=== PATIENT | male | born 1940 | race Caucasian/White ===

== ENCOUNTER 2021-08-19 10:13 | Observation (INO) ==
[2021-08-19] MEDS ORDERED: PROMETHAZINE 12.5 MG/50.5 ML BAG IV STA (11:08)
[2021-08-19] MEDS ORDERED: MoRPHine SULFATE 2 MG/ML CARP IV STA (11:08)
--- NOTE | 2021-08-19 11:15 | Emergency Department Note ---
History of Present Illness General Chief complaint: Flank Pain Stated complaint: KIDNEY STONE Time Seen by Provider: 08/19/21 10:49 History of Present Illness Maximum Pain Intensity: 9 This 80-year-old male presents today with his , for evaluation of left-sided flank pain that has been present for several days. Patient developed flank pain earlier in the week on 08/14/2021. He was initially seen at [facility] and had a noncontrast CT obtained of his abdomen and pelvis. This showed 2 obstructing renal stones with perinephric stranding and hydroureter. The ED did contact Dr. Lee at that time, who recommended follow-up in the office. Patient was seen by Dr. Lee on 08/17, this past Friday in the office. Patient was deemed to require cystoscopy, left ureteronephroscopy, retrograde pyelogram, laser destruction or stone extraction, and possible ureter stent placement. His states this is scheduled for September 10. Patient does have a history of severe aortic stenosis as well as coronary artery disease and valvular insufficiency and chronic kidney disease stage III. He is awaiting porcine valve replacement. He states that he requires cardiac clearance before surgery. Patient developed increasing pain last evening, and became excruciating around 10 PM. He states he did not sleep at all. He came to the ED for evaluation. Patient is tearful during today's exam, stating he is in excruciating pain. Pain starts in the left flank and radiates anteriorly to the left groin. He denies any vomiting or diarrhea. He does have nausea secondary to pain. No fevers or chills. He denies any manny blood in his urine. He feels he cannot wait until September 10 to have his stones addressed. His is frustrated, and is unsure what else to do. Pain is currently 9. Home Medications Medication Instructions Recorded Confirmed Type amlodipine 10 mg-benazepril 40 mg 1 cap PO DAILY 08/31/19 08/19/21 History capsule aspirin 81 mg tablet,delayed 81 mg PO DAILY 08/31/19 08/19/21 History release clopidogrel 75 mg tablet 75 mg PO DAILY 08/31/19 08/19/21 History cyanocobalamin (vitamin B-12) 1,000 mcg PO DAILY 08/31/19 08/19/21 History 1,000 mcg tablet ergocalciferol (vitamin D2) 50 mcg See Rx Instructions PO .COMPLEX 08/31/19 08/19/21 History (2,000 unit) tablet ezetimibe 10 mg tablet (Zetia) 10 mg PO DAILY 08/31/19 08/19/21 History ferrous sulfate 325 mg (65 mg See Rx Instructions PO .COMPLEX 08/31/19 08/19/21 History iron) tablet multivitamin (Daily Multi-Vitamin) 1 tab PO DAILY 08/31/19 08/19/21 History nitroglycerin 0.4 mg sublingual 0.4 mg SL Q5M PRN 08/31/19 08/19/21 History tablet (Nitrostat) pantoprazole 20 mg tablet,delayed 20 mg PO DAILY 08/31/19 08/19/21 History release rosuvastatin 40 mg tablet 40 mg PO DAILY 08/31/19 08/19/21 History turmeric root extract 500 mg See Rx Instructions PO .COMPLEX 08/31/19 08/19/21 History capsule acetaminophen 500 mg tablet 500 mg PO BID PRN tab 09/06/19 08/19/21 History (Tylenol Extra Strength) ascorbate calcium (vitamin C) 500 500 mg PO DAILY 09/06/19 08/19/21 History mg tablet benazepril 20 mg tablet (Lotensin) 20 mg PO DAILY 08/24/20 08/19/21 History metoprolol succinate 25 mg 25 mg PO DAILY 08/24/20 08/19/21 History tablet,extended release 24 hr (Toprol XL) vit C 250 mg-vit E 90 mg-zinc 40 1 cap PO DAILY 08/24/20 08/19/21 History mg-copper 1 sr-anuvns-ohpjuk capsule (PreserVision AREDS-2) tamsulosin 0.4 mg capsule 0.4 mg PO DAILY 08/19/21 08/19/21 History Allergies Allergy/AdvReac Type Severity Reaction Status Date / Time Penicillins Allergy Unverified 08/17/21 10:28 Past Med/Surg History Medical History Arthritis Basal cell carcinoma (BCC) of eye CAD (coronary artery disease) Cataracts, both eyes Chronic kidney disease, stage III (moderate) Fluid level behind tympanic membrane of both ears GERD (gastroesophageal reflux disease) Hyperlipemia Hypertension Kidney stones Schatzki's ring Type II diabetes mellitus Vitamin D deficiency Surgical History H/O carpal tunnel repair right H/O heart artery stent H/O tooth extraction History of esophagogastroduodenoscopy (EGD) History of knee replacement History of placement of ear tubes History of tonsillectomy and adenoidectomy History of total right knee replacement Hx of cardiac cath Hx of colonoscopy Family History Denies family history of Kidney disease Social History Smoking Status: Never smoker Hx Alcohol Use: No Preferred Language: Slovenian marital status: Current Living Situation: Spouse current occupational status: retired 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[place]) Feels Safe at Home: Yes Review of Systems A total of 10 systems reviewed and were otherwise negative Physical Exam Vital Signs Vital Signs - 24 hr 08/19/21 10:49 08/19/21 11:21 08/19/21 13:00 Temperature 37 C Temperature Source Temporal Artery Scan Pulse Rate 75 Pulse Rate [Apical] 71 73 Pulse Rhythm [Apical] Regular Pulse Strength [Apical] Normal Respiratory Rate 20 24 18 Respiratory Effort / Characteristics Non-Labored Non-Labored Spontaneous Respiratory Depth Normal Normal Respiratory Pattern Regular Blood Pressure 133/78 Blood Pressure [Left Arm] 165/82 H 174/84 H Blood Pressure Mean 96 Blood Pressure Mean [Left Arm] 109 114 Blood Pressure Position [Left Arm] Semi-fowlers Pulse Oximetry 100 100 96 Oxygen Delivery Method Room Air Room Air Room Air Sepsis Recent Fever Within 48 Hours No Sepsis New/Unexplained Change in Mental Status No Sepsis Action Taken by Nursing No Action Required General: Well-developed, well-nourished, elderly white male, in no acute distress. Obvious discomfort. Occasionally crying. Laying on the bed. Alert and oriented. Skin: Warm and dry with fair turgor. No rashes or lesions. No ecchymosis or erythema. The patient is not diaphoretic. No abrasions. HEENT: Normocephalic atraumatic. Eyes PERRLA, EOMI. No conjunctiva or scleral injection. Ears TMs intact bilaterally with good light reflexes. No erythema or bulging. No hemotympanum. Canals are patent. Nares patent bilaterally without turbinate enlargement. No significant drainage. No epistaxis. Oropharynx without erythema or exudate. Uvula midline, oral mucosa moist. No lesions present. Lymphatics are palpated without anterior or posterior chain enlargement or tenderness. Heart: RRR. 3/6 systolic ejection murmur noted. No gallops or rubs. Lungs: Lungs clear to auscultation bilaterally. No crackles rhonchi or wheezing. Good air movement. Abdomen: Abdomen was inspected, auscultated, and palpated. Obese. Bowel sounds present x 4. Soft, left lower quadrant and suprapubic discomfort to palpation. No hepato-splenomegaly. No masses noted. Hernia is noted. No rebound, negative Navarro sign. No pain over McBurney's point. There is left-sided CVA tenderness. Musculoskeletal: Gross motor function of the upper and lower extremities is intact and unremarkable. Course Administered Medications Amlodipine Besylate (Amlodipine Besylate 5 Mg Tab) 10 mg PO QAM [facility] Stop: 09/18/21 18:44 Last Admin: 08/19/21 20:04 Dose: 10 mg Documented by: [id number] Ceftriaxone Sodium 2,000 mg/ (Dextrose) 70 mls @ 100 mls/hr IV Q24H [facility]; Protocol Stop: 08/21/21 18:59 Last Infusion: 08/19/21 21:01 Dose: 0 mls/hr Documented by: [id number] Admin: 08/19/21 20:08 Dose: 100 mls/hr Documented by: [id number] Insulin Aspart (Insulin Aspart 100 Units/Ml 3 Ml Pen) 0 units SC Q6 [facility] Stop: 09/18/21 19:29 Last Admin: 08/19/21 20:16 Dose: Not Given Documented by: [id number] Cosigned by: [id number] Metoprolol Succinate (Metoprolol Succ 25mg Ext Rel Tab) 25 mg PO DAILY [facility] Stop: 09/18/21 18:44 Last Admin: 08/19/21 20:06 Dose: 25 mg Documented by: [id number] Pantoprazole Sodium (Pantoprazole 40 Mg Tab) 40 mg PO DAILY [facility] Stop: 09/18/21 18:44 Last Admin: 08/19/21 20:05 Dose: 40 mg Documented by: [id number] Rosuvastatin Calcium (Rosuvastatin Calcium 20 Mg Tab) 40 mg PO DAILY [facility] Stop: 09/18/21 18:44 Last Admin: 08/19/21 20:07 Dose: 40 mg Documented by: [id number] Tamsulosin HCl (Tamsulosin Hcl 0.4 Mg Cap) 0.4 mg PO DAILY [facility] Stop: 09/18/21 18:44 Last Admin: 08/19/21 20:06 Dose: 0.4 mg Documented by: [id number] Discontinued Medications Promethazine HCl (Phenergan) 12.5 mg in 50.5 mls @ 202 mls/hr IV NOW STA Stop: 08/19/21 11:22 Last Infusion: 08/19/21 11:41 Dose: 0 mls/hr Documented by: [id number] Admin: 08/19/21 11:26 Dose: 202 mls/hr Documented by: [id number] Morphine Sulfate (Morphine Sulfate 2 Mg/Ml Carp) 2 mg IV NOW STA Stop: 08/19/21 11:09 Last Admin: 08/19/21 11:25 Dose: 2 mg Documented by: [id number] Medical Decision Making Differential Diagnosis Renal colic, obstructing kidney stone, pyelonephritis, muscle strain, lumbar radiculopathy, diverticulitis Medical Records Attestation: I reviewed the patient's medical records. Home Medications Current Medication List: was personally reviewed by me Laboratory Data CBC, Jen panel, UA, and COVID-19 test were ordered. CBC shows an H&H of 11.5 and 35.2. White count of 11.1. Electrolytes are unremarkable. BUN of 36 with creatinine of 2.58. Covid is negative. Patient was unable to provide a urine sample while in the ED. Result diagrams: 08/19/21 11:16 08/19/21 11:16 Lab Results 08/19/21 08/19/21 08/19/21 Range/Units 11:16 11:16 13:00 WBC 11.14 H (4.8-10.8) K/uL RBC 4.03 L (4.7-6.1) M/uL Hgb 11.5 L (14.0-18.0) g/dL Hct 35.2 L (42-52) % MCV 87.3 (80-100) fL MCH 28.5 (25-34) pg MCHC 32.7 (32-36) g/dL RDW Std Deviation 46.7 H (36.4-46.3) fL RDW Coeff of Nury 14.6 H (11.5-14.5) % Plt Count 226 (130-400) K/uL MPV 10.3 (7.4-10.4) fL Immature Gran % (Auto) 0.3 % Neut % (Auto) 83.9 % Lymph % (Auto) 4.8 % Licking % (Auto) 10.5 % Eos % (Auto) 0.3 % Baso % (Auto) 0.2 % Neut # (Auto) 9.36 H (1.4-6.5) K/uL Lymph # (Auto) 0.53 L (1.2-3.4) K/uL [place] # (Auto) 1.17 H (0.11-0.59) K/uL Eos # (Auto) 0.03 (0-0.5) K/uL Baso # (Auto) 0.02 (0-0.2) K/uL Immature Gran # (Auto) 0.03 H (0.00-0.02) K/uL Sodium 138 (136-145) mmol/L Potassium 4.5 (3.5-5.1) mmol/L Chloride 106 (98-107) mmol/L Carbon Dioxide 24 (21-32) mmol/L Anion Gap 8.0 (3-11) BUN 36 H (7-18) mg/dl Creatinine 2.58 H (0.6-1.4) mg/dl Est Cr Clr Drug Dosing 25.2 ml/min Est GFR ( Amer) 26.4 ml/min Est GFR (Non-Af Amer) 22.8 ml/min BUN/Creatinine Ratio 14.0 (10-20) Glucose 151 H (70-99) mg/dl Calcium 9.8 (8.5-10.1) mg/dl Total Bilirubin 0.5 (0.2-1) mg/dl Direct Bilirubin 0.2 (0-0.2) mg/dl AST 15 (15-37) U/L ALT 18 (12-78) U/L Alkaline Phosphatase 46 (45-117) U/L Troponin I < 0.015 (0-0.045) ng/ml Total Protein 8.1 (6.4-8.2) gm/dl Albumin 3.4 (3.4-5.0) gm/dl Globulin 4.7 H (2.5-4.0) gm/dl Albumin/Globulin Ratio 0.7 L (0.9-2) COVID-19 Eval Order Covid19 at [facility] SARS-CoV-2 (PCR) (Negative) 08/19/21 Range/Units 13:00 WBC (4.8-10.8) K/uL RBC (4.7-6.1) M/uL Hgb (14.0-18.0) g/dL Hct (42-52) % MCV (80-100) fL MCH (25-34) pg MCHC (32-36) g/dL RDW Std Deviation (36.4-46.3) fL RDW Coeff of Nury (11.5-14.5) % Plt Count (130-400) K/uL MPV (7.4-10.4) fL Immature Gran % (Auto) % Neut % (Auto) % Lymph % (Auto) % L[place] % (Auto) % Eos % (Auto) % Baso % (Auto) % Neut # (Auto) (1.4-6.5) K/uL Lymph # (Auto) (1.2-3.4) K/uL Licking # (Auto) (0.11-0.59) K/uL Eos # (Auto) (0-0.5) K/uL Baso # (Auto) (0-0.2) K/uL Immature Gran # (Auto) (0.00-0.02) K/uL Sodium (136-145) mmol/L Potassium (3.5-5.1) mmol/L Chloride (98-107) mmol/L Carbon Dioxide (21-32) mmol/L Anion Gap (3-11) BUN (7-18) mg/dl Creatinine (0.6-1.4) mg/dl Est Cr Clr Drug Dosing ml/min Est GFR ( Amer) ml/min Est GFR (Non-Af Amer) ml/min BUN/Creatinine Ratio (10-20) Glucose (70-99) mg/dl Calcium (8.5-10.1) mg/dl Total Bilirubin (0.2-1) mg/dl Direct Bilirubin (0-0.2) mg/dl AST (15-37) U/L ALT (12-78) U/L Alkaline Phosphatase (45-117) U/L Troponin I (0-0.045) ng/ml Total Protein (6.4-8.2) gm/dl Albumin (3.4-5.0) gm/dl Globulin (2.5-4.0) gm/dl Albumin/Globulin Ratio (0.9-2) COVID-19 Eval Order SARS-CoV-2 (PCR) NEGATIVE (Negative) Blood Pressure Blood Pressure Findings: Elevated blood pressure Blood Pressure Disposition: elevated BP felt to be situational MDM Narrative Patient was evaluated in room C3. Conservative care measures were discussed. IV was established. Labs were obtained. He was given Phenergan 25 mg IV and morphine 2 mg IV. Pain became tolerable. I did speak with Dr. Lee after the patient's lab work was resulted. He recommended admission to the hospital for pain control with urology consult. Patient will require cardiac clearance to proceed with his planned cystoscopy. He states his coding consultant is in the [place] area. He will need to see someone locally. Patient has already had 2 ED visits and a specialist visit within the last 5 days. Symptoms have not improved. I did speak with the [facility] hospitalist service regarding admission. Please see that dictation for final management. Patient was seen in conjunction with Dr. Mak, who also evaluated the patient and concurred with today's diagnosis and treatment plan. Impression & Plan Ureteral calculi, Flank Pain Admission to the hospitalist service with urology and cardiology consults. Discharge Plan Visit Data Chief Complaint: Flank Pain Stated Complaint: KIDNEY STONE ED Provider: Zac Mak ED Midlevel Provider: Randy Browne Discharge Problem: Ureteral calculi, Flank Pain
[2021-08-19 11:34] LABS: Basophils # (auto) 0.02 K/uL (0-0.2); Basophils % (auto) 0.2 %; Eosinophils # (auto) 0.03 K/uL (0-0.5); Eosinophils % (auto) 0.3 %; Hematocrit (blood only) 35.2 % (42-52); Hemoglobin 11.5 g/dL (14.0-18.0); Immature Granulocytes # (auto) 0.03 K/uL (0.00-0.02); Immature Granulocytes % (auto) 0.3 %; Lymphocytes # (auto) 0.53 K/uL (1.2-3.4); Lymphocytes % (auto) 4.8 %; Mean Corpuscular Hemoglobin 28.5 pg (25-34); Mean Corpuscular Hgb Conc 32.7 g/dL (32-36); Mean Corpuscular Volume 87.3 fL (80-100); Mean Platelet Volume 10.3 fL (7.4-10.4); Monocytes # (auto) 1.17 K/uL (0.11-0.59); Monocytes % (auto) 10.5 %; Neutrophils # (auto) 9.36 K/uL (1.4-6.5); Neutrophils % (auto) 83.9 %; Platelet Count 226 K/uL (130-400); RDW Coefficient of Variation 14.6 % (11.5-14.5); RDW Standard Deviation 46.7 fL (36.4-46.3); Red Blood Count 4.03 M/uL (4.7-6.1); White Blood Count 11.14 K/uL (4.8-10.8)
[2021-08-19 11:53] LABS: Albumin Level 3.4 gm/dl (3.4-5.0); Bilirubin Direct 0.2 mg/dl (0-0.2); Blood Urea Nitrogen 36 mg/dl (7-18); Calcium 9.8 mg/dl (8.5-10.1); Carbon Dioxide 24 mmol/L (21-32); Chloride 106 mmol/L (98-107); Creatinine Clr Calc Pharmacy 25.2 ml/min; Est GFR (African American) 26.4 ml/min; Est GFR (Non-African American) 22.8 ml/min; Glucose 151 mg/dl (70-99); Potassium 4.5 mmol/L (3.5-5.1); Sodium 138 mmol/L (136-145)
[2021-08-19 12:01] LABS: Alanine Aminotransferase 18 U/L (12-78); Albumin Globulin Ratio 0.7 (0.9-2); Alkaline Phosphatase 46 U/L (45-117); Aspartate Aminotransferase 15 U/L (15-37); Bilirubin,Total 0.5 mg/dl (0.2-1); Globulin 4.7 gm/dl (2.5-4.0); Total Protein 8.1 gm/dl (6.4-8.2)
--- NOTE | 2021-08-19 13:12 | History & Physical Report ---
Date of Service August 19, 2021 Assessment & Plan (1) Ureteral calculi: Plan: Hernan is a 80-year-old male with a history of severe aortic stenosis, coronary artery disease with past PCI and 100% occluded RCA, hypertension, type 2 diabetes, and CKD 3 who presents with intractable pain due to nephrolithiasis. Patient is admitted for obstructing nephrolithiasis with intractable pain. Of note he has severe coronary artery disease and progressive symptomatic severe aortic stenosis. He was pending outpatient cardiac optimization and potential TAVR evaluation prior to nephrolithiasis management, unfortunately he has presented with ABBY and intractable pain prior. Patient is not able to be transferred at this time, and in the setting of an acute ABBY with hydronephrosis involve optimization may not be able to be done until initial ABBY and hydronephrosis is managed. We will admit to our service at this time, urology consulted. Perioperative risk discussed with patient and family at bedside, who are understanding of this Obstructing nephrolithiasis with moderate/proximal hydro and perinephric stranding Leukocytosis to 11.14 Hemoglobin 11.5 Creatinine baseline approximately 2.02.3, 2.[address] on admission Covid pending CT 08/14/2021: 2 obstructing calculi in the proximal left ureter resulting in moderate/proximal hydronephrosis and perinephric stranding. Nonobstructing calculus in the lower right kidney, uncomplicated cholelithiasis, and extensive sigmoid diverticulosis without complication are noted. Large right inguinal hernia extending into the region of the upper scrotum incompletely assessed. Urology consulted Rocephin 2 g IV Zofran every 4 hours for nausea Hydromorphone 0.5 mg every 4 hours as needed scaled analgesia Empiric coverage with Rocephin patient previously tolerated Keflex with no reaction. (2) Aortic stenosis: Plan: -Severe aortic stenosis Symptomatic, severe by report TTE pending (3) Carpal tunnel syndrome, left: (4) Chronic kidney disease, stage III (moderate): Plan: CKD 3, with acute ABBY Baseline creatinine 22 0.3 Creatinine 2.58 on admission Gentle fluids, avoid nephrotoxins (5) Hypertension: Plan: Hypertension Continue amlodipine 10 mg daily Benzapril 40 mg held for ABBY (6) CAD (coronary artery disease): Plan: Coronary artery disease Continue rosuvastatin 40 mg daily Continue metoprolol 25 mg p.o. daily Continue Zetia 10 mg daily Continue aspirin/Plavix (7) Type II diabetes mellitus: Plan: Type 2 diabetes mellitus Hold home antiglycemic Glucose 151 on admission SSI goal 1001 40 History of Present Illness Chief Complaint: Back Pain Primary Care Provider: Celina Liz MD Hernan Tanner is a 80-year-old male with a past medical history of CAD with PCI and stent, type 2 diabetes, Schatzki's ring, hypertension, hyperlipidemia, CKD 3, cataracts, BCC of the eye, and arthritis who was seen in [facility] and was found to have 2X renal stones and was sent outpatient follow-up with Dr. Lee. He was scheduled for lithotripsy in September pending cardiac clearance, however has presented for intractable pain 08/19. Case was discussed with Dr. Lee by ER, recommended for admission with cardiology consult for optimization and nephrolithiasis treatment. [facility] 2x renal stones Sees [place] operator [place]. Hx of valvular problems and murmur, hx of severe . CT Scan LEFT. Dr. Hurtado saw outpt Friday. Having pain, was scheduled for lithotripsy. Was pending cardiac clearance and scheduled for Sep 10 Pain all day until 10pm, acutely worsened and intractable Per Dr. Hurtado: Admit, accelerate cardiac workup, tx in house Ginny tto ed at 830pm felt OK. Woke up with severe sharp pain in her L back. Took two tylenol with no improvement. No pain with urination No hematuria Pain is in his L back. Mild LUQ pain. 5/10 pain now, 10/10 pain now Normally sees Cardiology Dr. Mcgovern with [facility] in [place], [place]. Hx of Aortic Stenosis, scheduled for f/u on Aug 27 for evaluation. +Sob with exertion, progressive for several months No chest pain, no chest pressure right now +chest pain and cold sweat last night with pain episode PCI & carotid stent. PCI in Oct 2003. R carotid stend placed 2013. No medications yet this morning. Heart cath in 2015, RCA 100% occluded with collaterals. No IMDUR or Coreg since 2016. Medical History: Reviewed Medications: Reviewed Surgical History: Reviewed Allergies: Reviewed Social History: no tobacco, etoh, MM use. Code Status: Full Code. Allergies Allergy/AdvReac Type Severity Reaction Status Date / Time Penicillins Allergy Unverified 08/17/21 10:28 Home Medications Medication Instructions Recorded Confirmed Type amlodipine 10 mg-benazepril 40 mg 1 cap PO DAILY 08/31/19 08/19/21 History capsule aspirin 81 mg tablet,delayed 81 mg PO DAILY 08/31/19 08/19/21 History release clopidogrel 75 mg tablet 75 mg PO DAILY 08/31/19 08/19/21 History cyanocobalamin (vitamin B-12) 1,000 mcg PO DAILY 08/31/19 08/19/21 History 1,000 mcg tablet ergocalciferol (vitamin D2) 50 mcg See Rx Instructions PO .COMPLEX 08/31/19 08/19/21 History (2,000 unit) tablet ezetimibe 10 mg tablet (Zetia) 10 mg PO DAILY 08/31/19 08/19/21 History ferrous sulfate 325 mg (65 mg See Rx Instructions PO .COMPLEX 08/31/19 08/19/21 History iron) tablet multivitamin (Daily Multi-Vitamin) 1 tab PO DAILY 08/31/19 08/19/21 History nitroglycerin 0.4 mg sublingual 0.4 mg SL Q5M PRN 08/31/19 08/19/21 History tablet (Nitrostat) pantoprazole 20 mg tablet,delayed 20 mg PO DAILY 08/31/19 08/19/21 History release rosuvastatin 40 mg tablet 40 mg PO DAILY 08/31/19 08/19/21 History turmeric root extract 500 mg See Rx Instructions PO .COMPLEX 08/31/19 08/19/21 History capsule acetaminophen 500 mg tablet 500 mg PO BID PRN tab 09/06/19 08/19/21 History (Tylenol Extra Strength) ascorbate calcium (vitamin C) 500 500 mg PO DAILY 09/06/19 08/19/21 History mg tablet benazepril 20 mg tablet (Lotensin) 20 mg PO DAILY 08/24/20 08/19/21 History metoprolol succinate 25 mg 25 mg PO DAILY 08/24/20 08/19/21 History tablet,extended release 24 hr (Toprol XL) vit C 250 mg-vit E 90 mg-zinc 40 1 cap PO DAILY 08/24/20 08/19/21 History mg-copper 1 [id number] capsule (PreserVision AREDS-2) tamsulosin 0.4 mg capsule 0.4 mg PO DAILY 08/19/21 08/19/21 History Past Med/Surg History Medical History (Updated 08/19/21 @ 17:14 by Thom Kimble MD) Arthritis Basal cell carcinoma (BCC) of eye CAD (coronary artery disease) Cataracts, both eyes Chronic kidney disease, stage III (moderate) Fluid level behind tympanic membrane of both ears GERD (gastroesophageal reflux disease) Hyperlipemia Hypertension Kidney stones Schatzki's ring Type II diabetes mellitus Vitamin D deficiency Surgical History H/O carpal tunnel repair right H/O heart artery stent H/O tooth extraction History of esophagogastroduodenoscopy (EGD) History of knee replacement History of placement of ear tubes History of tonsillectomy and adenoidectomy History of total right knee replacement Hx of cardiac cath Hx of colonoscopy Family History Denies family history of Kidney disease Social History Smoking Status: Never smoker Hx Alcohol Use: No Preferred Language: Serbian marital status: Current Living Situation: Spouse current occupational status: retired 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 NAD. Cooperative. HEENT: Atraumatic, normocephalic. Vision/hearing grossly intact Pulm: CTAB A&P. -wheezes, -rales, -rhonchi. Symmetrical chest rise. No increase work of breathing. No respiratory distress. Cardiac: 6/6 sytolic murmur. Radial pulses intact and symmetrical. Abdominal: Left CVA tenderness is present, left flank tenderness is present. No rebound. Bowel sounds present. Ext: Distal extremity strength including retaining room cutter strength, ankle dorsiflexion/plantarflexion 5/5. Sensation to soft touch intact in hands and feet. Results & Data Results & Data ([facility]) Vital Signs (Past 12 Hours) Vital Signs Temp Pulse Pulse Resp BP BP Pulse Ox 08/19/21 11: 71 24 165/82 H 100 08/19/21 10:49 37 C 75 20 133/78 100 PG Care Time/CCT Total # of Minutes Spent Total Time Spent with Patient: Total time spent is greater than 50% in coordination of care (as documented) at patient's floor/unit and/or counseling patient: Coding Level of Care Code 78945 Initial Inpt Care Lvl 3 Diagnoses Ureteral calculi N20.1 Carpal tunnel syndrome, left G56.02 Chronic kidney disease, stage III (moderate) N18.3 Hypertension I10 Aortic stenosis I35.0 CAD (coronary artery disease) I25.10 Type II diabetes mellitus E11.9
[2021-08-19 16:01] LABS: Appearance Urine Clear (Clear); Bacteria Urine Automated Negative (Negative); Bilirubin Urine Negative (Negative); Blood Urine Negative (Negative); Color Urine Yellow; Glucose Urine UA Negative (Negative); Ketones Urine Negative (Negative); Leukocyte Esterase Urine Negative (Negative); Nitrite Urine Negative (Negative); Protein Urine 1+ (Negative); RBC Urine Automated 0-4 /hpf (0-4); Specific Gravity Urine 1.019 (1.000-1.030); Urobilinogen Urine Negative (Negative)
[2021-08-19] MEDS ORDERED: HYDROmorphone INJ 0.5 MG/0.5 ML SYR IV PRN (18:45)
[2021-08-19] MEDS ORDERED: ONDANSETRON INJ 2 MG/ML 2 ML VIAL IV PRN (18:45)
[2021-08-19] MEDS ORDERED: PHARMACY GLYCEMIC MGMT CONSULT PRN (18:45)
[2021-08-19] MEDS ORDERED: ACETAMINOPHEN 325 MG TAB PO PRN (18:45)
[2021-08-19] MEDS ORDERED: cefTRIAXone SODIUM 2,000 MG in DEXTROSE 5% 50 ML IV SCH (19:00)
[2021-08-19] MEDS ORDERED: GLUCOSE 10 TABS/TUBE PO PRN (19:15)
[2021-08-19] MEDS ORDERED: GLUCAGON FOR INJ 1 MG VIAL IM PRN (19:15)
[2021-08-19] MEDS ORDERED: DEXTROSE 50% 50 ML SYRINGE IV PRN (19:15)
[2021-08-19] MEDS ORDERED: GLUCOSE 40% GEL 15 GM TUBE PO PRN (19:15)
[2021-08-19] MEDS ORDERED: CARBOHYDRATES FOR HYPOGLYCEMIA PO PRN (19:15)
[2021-08-19] MEDS: amLODIPine BESYLATE 5 MG TAB PO SCH (20:04)
[2021-08-19] MEDS: PANTOprazole 40 MG TAB PO SCH (20:05)
[2021-08-19] MEDS: TAMSULOSIN HCL 0.4 MG CAP PO SCH (20:06)
[2021-08-19] MEDS: METOPROLOL SUCC 25MG EXT REL TAB PO SCH (20:06)
[2021-08-19] MEDS: ROSUVASTATIN CALCIUM 20 MG TAB PO SCH (20:07)
[2021-08-19] MEDS: INSULIN ASPART 100 UNITS/ML 3 ML PEN SC SCH (20:16)
[2021-08-19 20:58] LABS: Troponin I < 0.015 ng/ml (0-0.045)
[2021-08-19] MEDS: HEPARIN SOD 5,000 UNIT/0.5 ML VIAL SQ SCH (21:41)
[2021-08-20] MEDS: INSULIN ASPART 100 UNITS/ML 3 ML PEN SC SCH ×3 (00:09→12:14)
[2021-08-20 04:53] LABS: Basophils # (auto) 0.02 K/uL (0-0.2); Basophils % (auto) 0.2 %; Eosinophils # (auto) 0.06 K/uL (0-0.5); Eosinophils % (auto) 0.7 %; Hematocrit (blood only) 32.4 % (42-52); Hemoglobin 10.4 g/dL (14.0-18.0); Immature Granulocytes # (auto) 0.01 K/uL (0.00-0.02); Immature Granulocytes % (auto) 0.1 %; Lymphocytes # (auto) 0.74 K/uL (1.2-3.4); Lymphocytes % (auto) 9.1 %; Mean Corpuscular Hemoglobin 28.4 pg (25-34); Mean Corpuscular Hgb Conc 32.1 g/dL (32-36); Mean Corpuscular Volume 88.5 fL (80-100); Mean Platelet Volume 10.1 fL (7.4-10.4); Monocytes # (auto) 1.05 K/uL (0.11-0.59); Monocytes % (auto) 12.9 %; Neutrophils # (auto) 6.28 K/uL (1.4-6.5); Platelet Count 200 K/uL (130-400); RDW Coefficient of Variation 14.7 % (11.5-14.5); RDW Standard Deviation 48.1 fL (36.4-46.3); Red Blood Count 3.66 M/uL (4.7-6.1); White Blood Count 8.16 K/uL (4.8-10.8)
[2021-08-20 05:10] LABS: Calcium 9.2 mg/dl (8.5-10.1); Creatinine Clr Calc Pharmacy 23.6 ml/min; Est GFR (African American) 24.4 ml/min; Potassium 4.2 mmol/L (3.5-5.1)
[2021-08-20 06:57] LABS: Estimated Average Glucose 146 mg/dl; Hemoglobin A1C 6.7 % (4.5-5.6)
--- NOTE | 2021-08-20 08:48 | XCELERA ---
[id number]
[2021-08-20] MEDS ORDERED: CLOPIDOGREL BISULFATE 75 MG TAB PO SCH (09:00)
[2021-08-20] MEDS ORDERED: ASPIRIN 81 MG ECTAB PO SCH (09:00)
[2021-08-20] MEDS: amLODIPine BESYLATE 5 MG TAB PO SCH (09:21)
[2021-08-20] MEDS: METOPROLOL SUCC 25MG EXT REL TAB PO SCH (09:22)
[2021-08-20] MEDS: ROSUVASTATIN CALCIUM 20 MG TAB PO SCH (09:23)
[2021-08-20] MEDS: PANTOprazole 40 MG TAB PO SCH (09:23)
[2021-08-20] MEDS: TAMSULOSIN HCL 0.4 MG CAP PO SCH (09:24)
[2021-08-20] MEDS: HEPARIN SOD 5,000 UNIT/0.5 ML VIAL SQ SCH (09:24)
--- NOTE | 2021-08-20 09:31 | Hospitalist Progress Note ---
Date of Service August 20, 2021 Assessment & Plan Admission and Anticipated Discharge Date Admission Date: August 19, 2021 Results & Data Results & Data ([facility]) Vital Signs (Past 12 Hours) Vital Signs Temp Pulse Resp BP Pulse Ox 08/20/21 07:50 77 20 144/70 H 96 08/20/21 03:48 37.1 C 79 20 139/74 94 08/19/21 23:00 82 24 145/62 H 97 08/19/21 22:31 37.1 C 76 18 159/74 H 95 Laboratory Results 08/20/21 08/20/21 08/20/21 Range/Units 06:01 04:32 04:32 WBC (4.8-10.8) K/uL RBC (4.7-6.1) M/uL Hgb (14.0-18.0) g/dL Hct (42-52) % MCV (80-100) fL MCH (25-34) pg MCHC (32-36) g/dL RDW Std Deviation (36.4-46.3) fL RDW Coeff of [place]ury (11.5-14.5) % Plt Count (130-400) K/uL MPV (7.4-10.4) fL Immature Gran % (Auto) % Neut % (Auto) % Lymph % (Auto) % [place] % (Auto) % Eos % (Auto) % Baso % (Auto) % Neut # (Auto) (1.4-6.5) K/uL Lymph # (Auto) (1.2-3.4) K/uL [place] # (Auto) (0.11-0.59) K/uL Eos # (Auto) (0-0.5) K/uL Baso # (Auto) (0-0.2) K/uL Immature Gran # (Auto) (0.00-0.02) K/uL Sodium 138 (136-145) mmol/L Potassium 4.2 (3.5-5.1) mmol/L Chloride 107 (98-107) mmol/L Carbon Dioxide 23 (21-32) mmol/L Anion Gap 8.0 (3-11) BUN 36 H (7-18) mg/dl Creatinine 2.76 H (0.6-1.4) mg/dl Est Cr Clr Drug Dosing 23.6 ml/min Est GFR ( Amer) 24.4 ml/min Est GFR (Non-Af Amer) 21.0 ml/min BUN/Creatinine Ratio 13.0 (10-20) Glucose 125 H (70-99) mg/dl POC Glucose 113 H (70-99) mg/dl Estimat Average Glucose 146 mg/dl Hemoglobin A1c 6.7 H (4.5-5.6) % Calcium 9.2 (8.5-10.1) mg/dl Total Bilirubin (0.2-1) mg/dl Direct Bilirubin (0-0.2) mg/dl AST (15-37) U/L ALT (12-78) U/L Alkaline Phosphatase (45-117) U/L Troponin I (0-0.045) ng/ml Total Protein (6.4-8.2) gm/dl Albumin (3.4-5.0) gm/dl Globulin (2.5-4.0) gm/dl Albumin/Globulin Ratio (0.9-2) Urine Color Urine Appearance (Clear) Urine pH (4.5-7.5) Ur Specific [place] (1.000-1.030) Urine Protein (Negative) Urine Glucose (UA) (Negative) Urine Ketones (Negative) Urine Blood (Negative) Urine Nitrite (Negative) Urine Bilirubin (Negative) Urine Urobilinogen (Negative) Ur Leukocyte Esterase (Negative) Urine WBC (Auto) (0-5) /hpf Urine RBC (Auto) (0-4) /hpf U Hyaline Cast (Auto) (0-5) /lpf U Epithel Cells (Auto) (0-5) /lpf Urine Bacteria (Auto) (Negative) COVID-19 Eval Order SARS-CoV-2 (PCR) (Negative) 08/20/21 08/19/21 08/19/21 Range/Units 04:32 23:56 20:10 WBC 8.16 (4.8-10.8) K/uL RBC 3.66 L (4.7-6.1) M/uL Hgb 10.4 L (14.0-18.0) g/dL Hct 32.4 L (42-52) % MCV 88.5 (80-100) fL MCH 28.4 (25-34) pg MCHC 32.1 (32-36) g/dL RDW Std Deviation 48.1 H (36.4-46.3) fL RDW Coeff of [place]ury 14.7 H (11.5-14.5) % Plt Count 200 (130-400) K/uL MPV 10.1 (7.4-10.4) fL Immature Gran % (Auto) 0.1 % Neut % (Auto) 77.0 % Lymph % (Auto) 9.1 % [place] % (Auto) 12.9 % Eos % (Auto) 0.7 % Baso % (Auto) 0.2 % Neut # (Auto) 6.28 (1.4-6.5) K/uL Lymph # (Auto) 0.74 L (1.2-3.4) K/uL [place] # (Auto) 1.05 H (0.11-0.59) K/uL Eos # (Auto) 0.06 (0-0.5) K/uL Baso # (Auto) 0.02 (0-0.2) K/uL Immature Gran # (Auto) 0.01 (0.00-0.02) K/uL Sodium (136-145) mmol/L Potassium (3.5-5.1) mmol/L Chloride (98-107) mmol/L Carbon Dioxide (21-32) mmol/L Anion Gap (3-11) BUN (7-18) mg/dl Creatinine (0.6-1.4) mg/dl Est Cr Clr Drug Dosing ml/min Est GFR ( Amer) ml/min Est GFR (Non-Af Amer) ml/min BUN/Creatinine Ratio (10-20) Glucose (70-99) mg/dl POC Glucose 113 H 113 H (70-99) mg/dl Estimat Average Glucose mg/dl Hemoglobin A1c (4.5-5.6) % Calcium (8.5-10.1) mg/dl Total Bilirubin (0.2-1) mg/dl Direct Bilirubin (0-0.2) mg/dl AST (15-37) U/L ALT (12-78) U/L Alkaline Phosphatase (45-117) U/L Troponin I (0-0.045) ng/ml Total Protein (6.4-8.2) gm/dl Albumin (3.4-5.0) gm/dl Globulin (2.5-4.0) gm/dl Albumin/Globulin Ratio (0.9-2) Urine Color Urine Appearance (Clear) Urine pH (4.5-7.5) Ur Specific [place] (1.000-1.030) Urine Protein (Negative) Urine Glucose (UA) (Negative) Urine Ketones (Negative) Urine Blood (Negative) Urine Nitrite (Negative) Urine Bilirubin (Negative) Urine Urobilinogen (Negative) Ur Leukocyte Esterase (Negative) Urine WBC (Auto) (0-5) /hpf Urine RBC (Auto) (0-4) /hpf U Hyaline Cast (Auto) (0-5) /lpf U Epithel Cells (Auto) (0-5) /lpf Urine Bacteria (Auto) (Negative) COVID-19 Eval Order SARS-CoV-2 (PCR) (Negative) 08/19/21 08/19/21 08/19/21 Range/Units 15:50 13:00 13:00 WBC (4.8-10.8) K/uL RBC (4.7-6.1) M/uL Hgb (14.0-18.0) g/dL Hct (42-52) % MCV (80-100) fL MCH (25-34) pg MCHC (32-36) g/dL RDW Std Deviation (36.4-46.3) fL RDW Coeff of Nury (11.5-14.5) % Plt Count (130-400) K/uL MPV (7.4-10.4) fL Immature Gran % (Auto) % Neut % (Auto) % Lymph % (Auto) % [place] % (Auto) % Eos % (Auto) % Baso % (Auto) % Neut # (Auto) (1.4-6.5) K/uL Lymph # (Auto) (1.2-3.4) K/uL [place] # (Auto) (0.11-0.59) K/uL Eos # (Auto) (0-0.5) K/uL Baso # (Auto) (0-0.2) K/uL Immature Gran # (Auto) (0.00-0.02) K/uL Sodium (136-145) mmol/L Potassium (3.5-5.1) mmol/L Chloride (98-107) mmol/L Carbon Dioxide (21-32) mmol/L Anion Gap (3-11) BUN (7-18) mg/dl Creatinine (0.6-1.4) mg/dl Est Cr Clr Drug Dosing ml/min Est GFR ( Amer) ml/min Est GFR (Non-Af Amer) ml/min BUN/Creatinine Ratio (10-20) Glucose (70-99) mg/dl POC Glucose (70-99) mg/dl Estimat Average Glucose mg/dl Hemoglobin A1c (4.5-5.6) % Calcium (8.5-10.1) mg/dl Total Bilirubin (0.2-1) mg/dl Direct Bilirubin (0-0.2) mg/dl AST (15-37) U/L ALT (12-78) U/L Alkaline Phosphatase (45-117) U/L Troponin I (0-0.045) ng/ml Total Protein (6.4-8.2) gm/dl Albumin (3.4-5.0) gm/dl Globulin (2.5-4.0) gm/dl Albumin/Globulin Ratio (0.9-2) Urine Color Yellow Urine Appearance Clear (Clear) Urine pH 5.0 (4.5-7.5) Ur Specific [place] 1.019 (1.000-1.030) Urine Protein 1+ H (Negative) Urine Glucose (UA) Negative (Negative) Urine Ketones Negative (Negative) Urine Blood Negative (Negative) Urine Nitrite Negative (Negative) Urine Bilirubin Negative (Negative) Urine Urobilinogen Negative (Negative) Ur Leukocyte Esterase Negative (Negative) Urine WBC (Auto) 1-5 (0-5) /hpf Urine RBC (Auto) 0-4 (0-4) /hpf U Hyaline Cast (Auto) 1-5 (0-5) /lpf U Epithel Cells (Auto) 5-10 H (0-5) /lpf Urine Bacteria (Auto) Negative (Negative) COVID-19 Eval Order Covid19 at [facility] SARS-CoV-2 (PCR) NEGATIVE (Negative) 08/19/21 08/19/21 Range/Units 11:16 11:16 WBC 11.14 H (4.8-10.8) K/uL RBC 4.03 L (4.7-6.1) M/uL Hgb 11.5 L (14.0-18.0) g/dL Hct 35.2 L (42-52) % MCV 87.3 (80-100) fL MCH 28.5 (25-34) pg MCHC 32.7 (32-36) g/dL RDW Std Deviation 46.7 H (36.4-46.3) fL RDW Coeff of [place]ury 14.6 H (11.5-14.5) % Plt Count 226 (130-400) K/uL MPV 10.3 (7.4-10.4) fL Immature Gran % (Auto) 0.3 % Neut % (Auto) 83.9 % Lymph % (Auto) 4.8 % [place] % (Auto) 10.5 % Eos % (Auto) 0.3 % Baso % (Auto) 0.2 % Neut # (Auto) 9.36 H (1.4-6.5) K/uL Lymph # (Auto) 0.53 L (1.2-3.4) K/uL [place] # (Auto) 1.17 H (0.11-0.59) K/uL Eos # (Auto) 0.03 (0-0.5) K/uL Baso # (Auto) 0.02 (0-0.2) K/uL Immature Gran # (Auto) 0.03 H (0.00-0.02) K/uL Sodium 138 (136-145) mmol/L Potassium 4.5 (3.5-5.1) mmol/L Chloride 106 (98-107) mmol/L Carbon Dioxide 24 (21-32) mmol/L Anion Gap 8.0 (3-11) BUN 36 H (7-18) mg/dl Creatinine 2.58 H (0.6-1.4) mg/dl Est Cr Clr Drug Dosing 25.2 ml/min Est GFR ( Amer) 26.4 ml/min Est GFR (Non-Af Amer) 22.8 ml/min BUN/Creatinine Ratio 14.0 (10-20) Glucose 151 H (70-99) mg/dl POC Glucose (70-99) mg/dl Estimat Average Glucose mg/dl Hemoglobin A1c (4.5-5.6) % Calcium 9.8 (8.5-10.1) mg/dl Total Bilirubin 0.5 (0.2-1) mg/dl Direct Bilirubin 0.2 (0-0.2) mg/dl AST 15 (15-37) U/L ALT 18 (12-78) U/L Alkaline Phosphatase 46 (45-117) U/L Troponin I < 0.015 (0-0.045) ng/ml Total Protein 8.1 (6.4-8.2) gm/dl Albumin 3.4 (3.4-5.0) gm/dl Globulin 4.7 H (2.5-4.0) gm/dl Albumin/Globulin Ratio 0.7 L (0.9-2) Urine Color Urine Appearance (Clear) Urine pH (4.5-7.5) Ur Specific [place] (1.000-1.030) Urine Protein (Negative) Urine Glucose (UA) (Negative) Urine Ketones (Negative) Urine Blood (Negative) Urine Nitrite (Negative) Urine Bilirubin (Negative) Urine Urobilinogen (Negative) Ur Leukocyte Esterase (Negative) Urine WBC (Auto) (0-5) /hpf Urine RBC (Auto) (0-4) /hpf U Hyaline Cast (Auto) (0-5) /lpf U Epithel Cells (Auto) (0-5) /lpf Urine Bacteria (Auto) (Negative) COVID-19 Eval Order SARS-CoV-2 (PCR) (Negative) PG Care Time/CCT Total # of Minutes Spent Total Time Spent with Patient: Total time spent is greater than 50% in coordination of care (as documented) at patient's floor/unit and/or counseling patient: Coding
--- NOTE | 2021-08-20 10:07 | Cardiology Consultation ---
Date of Consultation August 20, 2021 Assessment & Plan (1) Severe aortic stenosis: (2) CAD (coronary artery disease): (3) Hypertension: (4) Type II diabetes mellitus: (5) Chronic kidney disease, stage III (moderate): (6) Carotid stenosis, right: Patient with significant vascular history but good recent functional status, as noted he was able to chop wood as recently as last week. He does have exertional angina at moderate to high levels of activity, likely this is due to a combination of his significant aortic stenosis and underlying coronary artery disease (occluded/collateralized RCA). Echocardiogram today shows moderate to severe aortic stenosis (calculated valve area 1.1 cm) which appears noncritical. Valve excursion is reduced but clearly visible. Given his good functional status and lack of critical aortic stenosis, this patient should be acceptable to proceed with anesthesia/urologic procedure without excessive risk of perioperative complication/decompensation. Hemodynamics favorable, not hypotensive. Continue vasoactive regimen (amlodipine/metoprolol). Continue statin (rosuvastatin). Could temporarily hold clopidogrel to reduce risk of hematuria, would continue low-dose aspirin (81 mg daily). Will continue to follow postoperatively. History of Present Illness Reason for Consultation: Preoperative evaluation/severe aortic stenosis Requesting Physician: Zahira Cuevas MD Attending Physician: Zahira Cuevas MD History of Present Illness 80-year-old man with diabetes mellitus, chronic kidney disease (creatinine 2.7), coronary artery disease (remote PCI, occluded/collateralized RCA), carotid disease (right carotid stent 2017), severe aortic stenosis (elective TAVR planned for the near future), and nephrolithiasis who presents with obstructing calculus and intractable symptoms. Urologic intervention is planned, cardiology evaluation to assess perioperative risk. He has longstanding coronary artery disease, status post PCI with 4 stents placed distant past, catheterization 2016 showed 100% occluded but collat eralized RCA. Right internal carotid stent 2017, ultrasound showed 70% right less than 50% left stenosis in 2019. Told he had severe aortic stenosis and elective transcatheter aortic valve replacement (TAVR) was planned for the near future. Patient notes that he does have intermittent angina with moderate to high levels of exertion, however much of the time he has no problem and is able to perform fairly vigorous activities. For example, he was able to chop wood as recently as Wednesday with no angina or dyspnea. He notes that sometimes he can walk up stairs without difficulty, other times he develops angina after 1 flight, but this does not stop him from continuing to walk. He has not had rest angina or symptoms at low levels of activity. He has not had significant dyspnea. Denies orthopnea, PND, or ankle edema. No palpitations, presyncope, or syncope. He was comfortable at rest at the time of my evaluation this morning. Allergies Allergy/AdvReac Type Severity Reaction Status Date / Time Penicillins Allergy Unverified 08/17/21 10:28 Home Medications Medication Instructions Recorded Confirmed Type amlodipine 10 mg-benazepril 40 mg 1 cap PO DAILY 08/31/19 08/19/21 History capsule aspirin 81 mg tablet,delayed 81 mg PO DAILY 08/31/19 08/19/21 History release clopidogrel 75 mg tablet 75 mg PO DAILY 08/31/19 08/19/21 History cyanocobalamin (vitamin B-12) 1,000 mcg PO DAILY 08/31/19 08/19/21 History 1,000 mcg tablet ergocalciferol (vitamin D2) 50 mcg See Rx Instructions PO .COMPLEX 08/31/19 08/19/21 History (2,000 unit) tablet ezetimibe 10 mg tablet (Zetia) 10 mg PO DAILY 08/31/19 08/19/21 History ferrous sulfate 325 mg (65 mg See Rx Instructions PO .COMPLEX 08/31/19 08/19/21 History iron) tablet multivitamin (Daily Multi-Vitamin) 1 tab PO DAILY 08/31/19 08/19/21 History nitroglycerin 0.4 mg sublingual 0.4 mg SL Q5M PRN 08/31/19 08/19/21 History tablet (Nitrostat) pantoprazole 20 mg tablet,delayed 20 mg PO DAILY 08/31/19 08/19/21 History release rosuvastatin 40 mg tablet 40 mg PO DAILY 08/31/19 08/19/21 History turmeric root extract 500 mg See Rx Instructions PO .COMPLEX 08/31/19 08/19/21 History capsule acetaminophen 500 mg tablet 500 mg PO BID PRN tab 09/06/19 08/19/21 History (Tylenol Extra Strength) ascorbate calcium (vitamin C) 500 500 mg PO DAILY 09/06/19 08/19/21 History mg tablet benazepril 20 mg tablet (Lotensin) 20 mg PO DAILY 08/24/20 08/19/21 History metoprolol succinate 25 mg 25 mg PO DAILY 08/24/20 08/19/21 History tablet,extended release 24 hr (Toprol XL) vit C 250 mg-vit E 90 mg-zinc 40 1 cap PO DAILY 08/24/20 08/19/21 History mg-copper 1 [id number] capsule (PreserVision AREDS-2) tamsulosin 0.4 mg capsule 0.4 mg PO DAILY 08/19/21 08/19/21 History Patient History Medical History Arthritis Basal cell carcinoma (BCC) of eye CAD (coronary artery disease) Cataracts, both eyes Chronic kidney disease, stage III (moderate) Fluid level behind tympanic membrane of both ears GERD (gastroesophageal reflux disease) Hyperlipemia Hypertension Kidney stones Schatzki's ring Type II diabetes mellitus Vitamin D deficiency Surgical History H/O carpal tunnel repair right H/O heart artery stent H/O tooth extraction History of esophagogastroduodenoscopy (EGD) History of knee replacement History of placement of ear tubes History of tonsillectomy and adenoidectomy History of total right knee replacement Hx of cardiac cath Hx of colonoscopy Family History Denies family history of Kidney disease Social History Smoking Status: Never smoker Hx Alcohol Use: No Hx Substance Use: No Preferred Language: [place] [employer] Required: No Beliefs That Will Affect Care: None marital status: Current Living Situation: Spouse Current Living Situation Comment: Family home single floor with a basement current occupational status: retired 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 BP of mildly hypertensive. Pulse 72 bpm and regular. Skin: no ecchymoses or generalized lesions. HEENT: unremarkable. Neck: Jugular venous pulse just above the clavicle, bilateral carotid bruits versus transmitted murmur. Lungs: clear. Cardiac: regular rhythm, harsh 4/6 crescendo decrescendo murmur at the right upper sternal border rating to the carotids and across the precordium, markedly diminished but audible aortic closure sound, no diastolic murmur or gallop. Abdomen: benign. Extremities: no edema, pulses intact. Neurologic: normal affect and conversation nonfocal. Results & Data ([facility]) Vital Signs (Past 12 Hours) Vital Signs Temp Pulse Resp BP Pulse Ox 08/20/21 07:50 77 20 144/70 H 96 08/20/21 03:48 98.8 F 79 20 139/74 94 08/19/21 23:00 82 24 145/62 H 97 08/19/21 22:31 98.8 F 76 18 159/74 H 95 Laboratory Results Labs notable for hemoglobin 10.4, normal electrolytes, BUN 36, creatinine 2.76. Negative troponin. Diagnostic Findings Echocardiogram today showed EF 55 to 60% with moderate LVH and diastolic dysfunction, moderate to severe aortic stenosis which appears noncritical. ECG Additional Comments: No ECG available. PG Care Time/CCT Total # of Minutes Spent Total Time Spent with Patient: Total time spent is greater than 50% in coordination of care (as documented) at patient's floor/unit and/or counseling patient: Coding Level of Care Code 86977 Inpt Consult Level 4 Diagnoses Severe aortic stenosis I35.0 CAD (coronary artery disease) I25.10 Hypertension I10 Type II diabetes mellitus E11.9 Chronic kidney disease, stage III (moderate) N18.3 Carotid stenosis, right I65.21
--- NOTE | 2021-08-20 10:24 | Urology Consultation ---
Date of Consultation August 20, 2021 Assessment & Plan (1) Calculus of proximal left ureter: 80 yo M admitted for left flank pain and ABBY secondary to 2 obstructing stones in the left proximal ureter with moderate hydronephrosis. - Pt afebrile, nontoxic, lab work reviewed - creatinine increased to 2.76, WBC 8.16, Hgb 10.4. - UA on admission was not suggestive of infection, no urine culture pending, UC&S 08/17 showed no growth. - Continue IV Ceftriaxone per primary service. - Discussed options for stone management including acute placement of left ureteral stent while inpatient. - Patient has been evaluated by cardiology - he is cleared for minimal sedation/minor procedure today due to high risk. - Findings reviewed with Dr. Lee. - Given his ABBY, hydronephrosis, and multiple ER presentations in the context of 2 obstructing proximal left ureteral stones, will proceed with OR for cystoscopy, Left retrograde pyelogram and Left stent placement. - Patient and agreeable to the plan, all questions answered. - Risks and benefits to be reviewed with patient by Dr. Lee. - OR notified. Preoperative CXR and echocardiogram on chart. COVID testing negative. - Will cover with scheduled IV Ceftriaxone preoperatively. - Keep NPO. - Strain all urine. - Will continue to follow while inpatient. ATTENDING NOTE: Agree with above. Independently evaluated, reviewed, assessed, and examined. Agree with plan. Severe cardiac history with issues. Here for pulm and card as sessment. Has 2 x obs stones of the proximal ureter with hydronephrosis. Severe chronic illnesses. Stablizing with admission. Card Okay to proceed with small procedure. Severe surgical risk but severe risk due to stones and possiblitiy of sepsis. Risks and benefits discussed at length for procedure. These include bleeding, infection, injury to surrounding tissues or organs, and risks associated with anesthesia. Patient states understanding and agrees to proceed. Will sign consent and proceed with cystoscopy and left stent. History of Present Illness Reason for Consultation: Obstructing ureteral stones Requesting Physician: Dr. Kimble Attending Physician: Zahira Cuevas MD History of Present Illness 80 yo M with past medical history of severe aortic stenosis, CAD, hx of coronary artery stent, hypertension, hyperlipidemia, type 2 diabetes, chronic kidney disease stage III, right carotid stenosis, and kidney stones admitted for left flank pain and ABBY secondary to 2 obstructing stones in the left proximal ureter with moderate hydronephrosis. Patient known to our urology service for renal cysts and nephrolithiasis. He was seen recently at [place] ER on 08/14/21. CTAP at outside facility noted 2 obstructing calculi in the proximal left ureter with associated moderate hydronephrosis and perinephric stranding. He was recently seen in our outpatient clinic on 08/17 for known left ureteral stones. He was set up for outpatient stone surgery on 09/10 pending cardiac clearance given his history of severe aortic stenosis. Of note, he is pending consultation for valve replacement. He presented to [facility] ED on 08/19/21 with worsening left flank pain. Afebrile on arrival. Lab work reviewed and showed creatinine 2.58, WBC 11.14, Hgb 11.5. Urinalysis showed 1-5 WBCs, 0-4 RBCs, 5-10 epithelials, negative bacteria. Urine culture not collected. He was treated with IV Ceftriaxone, Tamsulosin, Phenergan, and Morphine in ED. He was admitted to the hospital medicine service. Urology service consulted for left ureteral stones. Chart review: He remains afebrile. Lab work reviewed and creatinine 2.76, WBC 8.16, Hgb 10.4. Remains on IV Ceftriaxone. Patient seen and examined in ER this AM. His is present at bedside. He is awake and resting in bed. Reports he is feeling better since arrival. Left flank pain is improved, currently rated at 3 out of 10. He is voiding without difficulty. Denies dysuria or hematuria. No nausea or vomiting. No fever or chills. No chest pain or shortness of breath at present. He is on Aspirin and Plavix. He is currently NPO. Reports history of spontaneously passing stones, no prior surgical intervention for stones. No additional concerns today. Allergies Allergy/AdvReac Type Severity Reaction Status Date / Time Penicillins Allergy Unverified 08/17/21 10:28 Home Medications Medication Instructions Recorded Confirmed Type amlodipine 10 mg-benazepril 40 mg 1 cap PO DAILY 08/31/19 08/19/21 History capsule aspirin 81 mg tablet,delayed 81 mg PO DAILY 08/31/19 08/19/21 History release clopidogrel 75 mg tablet 75 mg PO DAILY 08/31/19 08/19/21 History cyanocobalamin (vitamin B-12) 1,000 mcg PO DAILY 08/31/19 08/19/21 History 1,000 mcg tablet ergocalciferol (vitamin D2) 50 mcg See Rx Instructions PO .COMPLEX 08/31/19 08/19/21 History (2,000 unit) tablet ezetimibe 10 mg tablet (Zetia) 10 mg PO DAILY 08/31/19 08/19/21 History ferrous sulfate 325 mg (65 mg See Rx Instructions PO .COMPLEX 08/31/19 08/19/21 History iron) tablet multivitamin (Daily Multi-Vitamin) 1 tab PO DAILY 08/31/19 08/19/21 History nitroglycerin 0.4 mg sublingual 0.4 mg SL Q5M PRN 08/31/19 08/19/21 History tablet (Nitrostat) pantoprazole 20 mg tablet,delayed 20 mg PO DAILY 08/31/19 08/19/21 History release rosuvastatin 40 mg tablet 40 mg PO DAILY 08/31/19 08/19/21 History turmeric root extract 500 mg See Rx Instructions PO .COMPLEX 08/31/19 08/19/21 History capsule acetaminophen 500 mg tablet 500 mg PO BID PRN tab 09/06/19 08/19/21 History (Tylenol Extra Strength) ascorbate calcium (vitamin C) 500 500 mg PO DAILY 09/06/19 08/19/21 History mg tablet benazepril 20 mg tablet (Lotensin) 20 mg PO DAILY 08/24/20 08/19/21 History metoprolol succinate 25 mg 25 mg PO DAILY 08/24/20 08/19/21 History tablet,extended release 24 hr (Toprol XL) vit C 250 mg-vit E 90 mg-zinc 40 1 cap PO DAILY 08/24/20 08/19/21 History mg-copper 1 [id number] capsule (PreserVision AREDS-2) tamsulosin 0.4 mg capsule 0.4 mg PO DAILY 08/19/21 08/19/21 History Patient History Medical History Arthritis Basal cell carcinoma (BCC) of eye CAD (coronary artery disease) Cataracts, both eyes Chronic kidney disease, stage III (moderate) Fluid level behind tympanic membrane of both ears GERD (gastroesophageal reflux disease) Hyperlipemia Hypertension Kidney stones Farhatki's ring Type II diabetes mellitus Vitamin D deficiency Surgical History H/O carpal tunnel repair right H/O heart artery stent H/O tooth extraction History of esophagogastroduodenoscopy (EGD) History of knee replacement History of placement of ear tubes History of tonsillectomy and adenoidectomy History of total right knee replacement Hx of cardiac cath Hx of colonoscopy Family History Denies family history of Kidney disease Social History (Reviewed 08/20/21 @ 11: by SANDEEP Mitchell) Smoking Status: Never smoker Hx Alcohol Use: No Hx Substance Use: No Preferred Language: Swedish 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 Beliefs That Will Affect Care: None marital status: Current Living Situation: Spouse Current Living Situation Comment: Family home single floor with a basement current occupational status: retired 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[employer]) Other Information That Helps Us Care for You: No Feels Safe at Home: Yes Safety Concerns: Feels Safe At This Time Assistive Devices: None Review of Systems Constitutional: as per Subjective / HPI Eyes: no problem reported Ear, Nose, Mouth, Throat: no problem reported Respiratory: as per Subjective / HPI Cardiovascular: as per Subjective / HPI Gastrointestinal: as per Subjective / HPI Genitourinary: + as per Subjective / HPI Musculoskeletal: no problem reported Integumentary: no problem reported Neurologic: no problem reported Psychiatric: no problem reported Physical Exam Constitutional: well developed and well nourished; no acute distress and not ill appearing Respiratory: normal respiratory effort and able to speak in complete sentences; no respiratory distress and no labored breathing Cardiovascular: Extremities: no pedal edema Gastrointestinal (Abdomen): Inspection/Auscultation: abdomen normal to i nspection; abdomen not distended Percussion/Palpation: abdomen soft; abdomen nontender and no guarding Neurologic: moves all extremities and awake Psychiatric: Orientation: alert, oriented x 3 and cooperative Genitourinary: no CVA tenderness Results & Data ([facility]) Vital Signs (Past 12 Hours) Vital Signs Temp Pulse Resp BP Pulse Ox 08/20/21 07:50 77 20 144/70 H 96 08/20/21 03:48 37.1 C 79 20 139/74 94 08/19/21 23:00 82 24 145/62 H 97 08/19/21 22:31 37.1 C 76 18 159/74 H 95 PG Care Time/CCT Total # of Minutes Spent Total Time Spent with Patient: Total time spent is greater than 50% in coordination of care (as documented) at patient's floor/unit and/or counseling patient: Coding Level of Care Code 58918 Initial Inpt Care Lvl 3 Diagnoses Calculus of proximal left ureter N20.1
--- NOTE | 2021-08-20 10:45 | XRay Report ---
XR chest 1V portable CLINICAL HISTORY: pre-op TECHNIQUE: Single frontal radiograph of the chest was obtained. Comparison: None available at the time of this dictation. FINDINGS: No lines and tubes are seen. The cardiomediastinal silhouette is normal. Lungs are underinflated. The re is an airspace opacity at the left lung base. No evidence of pleural effusion or pneumothorax. IMPRESSION: Left lung base airspace opacity likely represents atelectasis with or without superimposed aspiration /pneumonia. ACT 112: Negative or not required by law. Electronically signed by: Tru Ashford M.D. 08/20/2021 10:43 AM
--- NOTE | 2021-08-20 11:56 | Pharmacy Report ---
Pharmacy Glycemic Short Note 2 - Date of Service August 20, 2021 - Glycemic Short BSG Results (Last 24 hours): 08/19/21 08/19/21 08/19/21 11:16 20:10 23:56 Glucose 151 H POC Glucose 113 H 113 H 08/20/21 08/20/21 04:32 06:01 Glucose 125 H POC Glucose 113 H OUTPATIENT ANTIDIABETIC REGIMEN: * n/a * A1c = 6.7% 08/20/21 ASSESSMENT: * Type 2 diabetic admitted for intractable pain from nephrolithiasis, ABBY and concern for complicated UTI * Patient does not manage his DM w/ medications and A1c is reflective of relatively good control * Pt remains NPO at this time with acceptable fasting BSGs - it does not appear he requires basal insulin * Will continue Novolog correctional / prandial insulin coverage based upon wt and "moderate" stress level PLAN FOR INPATIENT GLYCEMIC CONTROL: * Basal insulin * none at this time * Bolus insulin * NovoLog per scale ACHS or Q6hrs while NPO * Goal Range: Low 110 mg/dL - High 140 mg/dL * Correction Factor: 30 mg/dL/unit * Nutritional / Prandial insulin per carb ratio of 1 unit per 10 grams CHO consumed PLAN FOR DISCHARGE: * Given A1c 6.7%, no need to initiate medications for DM management on discharge.
[2021-08-20] MEDS ORDERED: fentaNYL citrate 100 MCG/2 ML VIAL ONE (13:08)
[2021-08-20] MEDS ORDERED: fentaNYL citrate 100 MCG/2 ML VIAL IV PRN (13:40)
[2021-08-20] MEDS ORDERED: ATROPINE SULFATE 0.1 MG/ML 10ML SYR IV PRN (13:40)
[2021-08-20] MEDS ORDERED: ePHEDrine sulfate 50 MG/ML AMP IV PRN (13:40)
[2021-08-20] MEDS ORDERED: ONDANSETRON INJ 2 MG/ML 2 ML VIAL IV PRN (13:40)
[2021-08-20] MEDS ORDERED: PROPOFOL IV EMULSION 10 MG/ML 20 ML VIAL IV ONE (13:41)
[2021-08-20] MEDS ORDERED: ONDANSETRON INJ 2 MG/ML 2 ML VIAL ONE (13:41)
[2021-08-20] MEDS ORDERED: LIDOCAINE 2% 2 ML VIAL/AMP(20MG/ML) INFIL ONE (13:41)
--- NOTE | 2021-08-20 13:42 | Anesthesiology Consultation ---
Date of Service August 20, 2021 Assessment & Plan (1) Encounter for pre-operative examination: Chart Review Chart Review: Acceptable Risk for Surgery and Patient NOT seen in Pre Admission Testing Cardiology note 08/20/21: Assessment & Plan (1) Severe aortic stenosis: (2) CAD (coronary artery disease): (3) Hypertension: (4) Type II diabetes mellitus: (5) Chronic kidney disease, stage III (moderate): (6) Carotid stenosis, right: Patient with significant vascular history but good recent functional status, as noted he was able to chop wood as recently as last week. He does have exertional angina at moderate to high levels of activity, likely this is due to a combination of his significant aortic stenosis and underlying coronary artery disease (occluded/collateralized RCA). Echocardiogram today shows moderate to severe aortic stenosis (calculated valve area 1.1 cm) which appears noncritical. Valve excursion is reduced but clearly visible. Given his good functional status and lack of critical aortic stenosis, this patient should be acceptable to proceed with anesthesia/urologic procedure without excessive risk of perioperative complication/decompensation. Consults Requested none History Surgery Operation Date: 08/20/21 13:20 Proposed Procedures p Cystoscopy, Left Stent - Connor Lee, DO Height/Weight Height: 5 ft 6 in Weight: 93.3 kg Allergies Allergy/AdvReac Type Severity Reaction Status Date / Time Penicillins Allergy Unverified 08/17/21 10:28 Medications Home Medications Medication Instructions Recorded Confirmed Last Taken amlodipine 10 mg-benazepril 40 mg 1 cap PO DAILY 08/31/19 08/19/21 Unknown capsule aspirin 81 mg tablet,delayed 81 mg PO DAILY 08/31/19 08/19/21 Unknown release clopidogrel 75 mg tablet 75 mg PO DAILY 08/31/19 08/19/21 Unknown cyanocobalamin (vitamin B-12) 1,000 mcg PO DAILY 08/31/19 08/19/21 Unknown 1,000 mcg tablet ergocalciferol (vitamin D2) 50 mcg See Rx Instructions PO .COMPLEX 08/31/19 Unknown (2,000 unit) tablet ezetimibe 10 mg tablet (Zetia) 10 mg PO DAILY 08/31/19 08/19/21 Unknown ferrous sulfate 325 mg (65 mg See Rx Instructions PO .COMPLEX 08/31/19 08/19/21 Unknown iron) tablet multivitamin (Daily Multi-Vitamin) 1 tab PO DAILY 08/31/19 08/19/21 Unknown nitroglycerin 0.4 mg sublingual 0.4 mg SL Q5M PRN 08/31/19 08/19/21 Unknown tablet (Nitrostat) pantoprazole 20 mg tablet,delayed 20 mg PO DAILY 08/31/19 08/19/21 Unknown release rosuvastatin 40 mg tablet 40 mg PO DAILY 08/31/19 08/19/21 Unknown turmeric root extract 500 mg See Rx Instructions PO .COMPLEX 08/31/19 08/19/21 Unknown capsule acetaminophen 500 mg tablet 500 mg PO BID PRN tab 09/06/19 08/19/21 Unknown (Tylenol Extra Strength) ascorbate calcium (vitamin C) 500 500 mg PO DAILY 09/06/19 08/19/21 Unknown mg tablet benazepril 20 mg tablet (Lotensin) 20 mg PO DAILY 08/24/20 08/19/21 Unknown metoprolol succinate 25 mg 25 mg PO DAILY 08/24/20 08/19/21 Unknown tablet,extended release 24 hr (Toprol XL) vit C 250 mg-vit E 90 mg-zinc 40 1 cap PO DAILY 08/24/20 08/19/21 Unknown mg-copper 1 [id number] capsule (PreserVision AREDS-2) tamsulosin 0.4 mg capsule 0.4 mg PO DAILY 08/19/21 08/19/21 Unknown Active Medications Generic Name Dose Route Start Last Admin Trade Name Freq PRN Reason Stop Dose Admin Amlodipine Besylate 10 mg 08/19/21 18:45 08/20/21 09:21 Amlodipine Besylate 5 Mg Tab PO 09/18/21 18:44 10 mg QAM SUE Administration Aspirin 81 mg 08/20/21 09:00 08/20/21 09:22 Aspirin 81 Mg Ectab PO 09/19/21 08:59 81 mg DAILY SUE Administration Clopidogrel Bisulfate 75 mg 08/20/21 09:00 08/20/21 09:22 Clopidogrel Bisulfate 75 Mg Tab PO 09/19/21 08:59 75 mg DAILY SUE Administration Heparin Sodium (Porcine) 5,000 units 08/19/21 21:00 08/20/21 09:24 Heparin Sod 5,000 Unit/0.5 Ml Vial SQ 09/18/21 20:59 5,000 units Q12 SUE Administration Ceftriaxone Sodium 2,000 mg/ 70 mls @ 100 mls/hr 08/19/21 19:00 08/19/21 2 1:01 Dextrose IV 08/21/21 18:59 Infused Q24H SUE Infusion Protocol Insulin Aspart 0 units 08/19/21 19:30 08/20/21 12:14 Insulin Aspart 100 Units/Ml 3 Ml Pen SC 09/18/21 19:29 Not Given Q6 SUE Metoprolol Succinate 25 mg 08/19/21 18:45 08/20/21 09:22 Metoprolol Succ 25mg Ext Rel Tab PO 09/18/21 18:44 25 mg DAILY SUE Administration Pantoprazole Sodium 40 mg 08/19/21 18:45 08/20/21 09:23 Pantoprazole 40 Mg Tab PO 09/18/21 18:44 40 mg DAILY SUE Administration Rosuvastatin Calcium 40 mg 08/19/21 18:45 08/20/21 09:23 Rosuvastatin Calcium 20 Mg Tab PO 09/18/21 18:44 40 mg DAILY SUE Administration Tamsulosin HCl 0.4 mg 08/19/21 18:45 08/20/21 09:24 Tamsulosin Hcl 0.4 Mg Cap PO 09/18/21 18:44 0.4 mg DAILY SUE Administration NPO Date Last Intake of Fluids: 08/19/21 Time Last Intake of Fluids: 10:00 Last Intake of Fluids Comment: sip w/meds today Date Last Intake of Solids: 08/19/21 Time Last Intake of Solids: 17:00 Past Medical History Medical History (Updated 08/20/21 @ 13:45 by Ac Byrnes MD) Arthritis Basal cell carcinoma (BCC) of eye CAD (coronary artery disease) Cataracts, both eyes Chronic kidney disease, stage III (moderate) Encounter for pre-operative examination Fluid level behind tympanic membrane of both ears GERD (gastroesophageal reflux disease) Hyperlipemia Hypertension Kidney stones Schatzki's ring Type II diabetes mellitus Vitamin D deficiency Past Family History Family History Denies family history of Kidney disease Past Surgical History Surgical History H/O carpal tunnel repair right H/O heart artery stent H/O tooth extraction History of esophagogastroduodenoscopy (EGD) History of knee replacement History of placement of ear tubes History of tonsillectomy and adenoidectomy History of total right knee replacement Hx of cardiac cath Hx of colonoscopy Social History Smoking Status: Never smoker Hx Alcohol Use: No Hx Substance Use: No Physical Exam Vital Signs Last Vital Signs Temp 37.2 C 08/20/21 12:40 Pulse 82 08/20/21 12:40 Resp 20 08/20/21 12:40 BP 142/71 H 08/20/21 12:40 Pulse Ox 97 08/20/21 12:40 Testing Laboratory Results 08/20/21 04:32 08/20/21 04:32 Hemoglobin A1c 6.7 % (4.5-5.6) H 08/20/21 04:32 Urine Color Yellow 08/19/21 15:50 Urine Appearance Clear (Clear) 08/19/21 15:50 Urine pH 5.0 (4.5-7.5) 08/19/21 15:50 Ur Specific [place]ey 1.019 (1.000-1.030) 08/19/21 15:50 Urine Protein 1+ (Negative) H 08/19/21 15:50 Urine Glucose (UA) Negative (Negative) 08/19/21 15:50 Urine Ketones Negative (Negative) 08/19/21 15:50 Urine Nitrite Negative (Negative) 08/19/21 15:50 Ur Leukocyte Esterase Negative (Negative) 08/19/21 15:50 Urine WBC (Auto) 1-5 /hpf (0-5) 08/19/21 15:50 Urine RBC (Auto) 0-4 /hpf (0-4) 08/19/21 15:50 U Hyaline Cast (Auto) 1-5 /lpf (0-5) 08/19/21 15:50 U Epithel Cells (Auto) 5-10 /lpf (0-5) H 08/19/21 15:50 Urine Bacteria (Auto) Negative (Negative) 08/19/21 15:50 08/20/21 08/20/21 12:08 06:01 POC Glucose 115 H 113 H Echocardiogram Date: 08/20/21 EF: 55-60% LV Function: normal Moderate LVH. Grade 1 DD. Borderline severe but non-critical . NAILA 1.1cm2.
--- NOTE | 2021-08-20 14:13 | Operative Report ---
[facility] Post Operative Report Pre & Post Diagnosis Obstructing Stone Left Same Operation Date: 08/20/21 13:20 <No data on this case meets the specified criteria> I identified the patient and participated in the time-out.: Yes Procedure Cystoscopy with left aspiration, retrograde pyelogram, and stent placement. Operation Date: 08/20/21 13:20 <No data on this case meets the specified criteria> Surgeon Connor Lee, II, DO Internet Salesperson None Estimated Blood Loss 1 Findings Consistent with Post-Op Diagnosis Stent placed in good position. Specimens None Drains 6 Fr Multilength Anesthesia Type MAC Complications none Disposition Disposition: Recovery Room Indications Patient with obstruction. Risks and benefits discussed at length. Description of Procedure Patient was consented and brought back to the operating room. Patient was placed under anesthesia in the supine position and moved to the dorsal lithotomy position. Patient was prepped and draped in the regular sterile fashion. A time out was completed. A 30degree Cystoscope was placed into the bladder and the entire bladder was examined. The UO's were identified. The UO was cannulized with a catheter, urine was aspirated, and a retrograde pyelogram was completed. A wire was then placed. With the wire in place, a 6 Fr Double J stent was placed. It was confirmed with fluoroscopy. With the stent in place, the bladder was emptied. The scope was removed. The patient was cleaned, aroused from anesthesia, and transferred to the pacu in stable condition having tolerated the procedure well with no complications. I was present and participated in all aspects of the procedure. The patient will be monitored in the PACU until transferred. Will need medical optimization and plan for followup in 2-3 weeks to set up stone treatment. I attest to the content of the Intraoperative Record and any orders documented therein. Any exceptions are noted below.
[2021-08-20] MEDS ORDERED: DIATRIZOATE MEGLUMINE 30% 100ML VIAL INSTIL ONE (14:21)
--- NOTE | 2021-08-20 14:28 | Fluoroscopy Report ---
FL retrograde includes kub CLINICAL HISTORY: LEFT STENT RETROGRADE TECHNIQUE: 2 views were obtained with the C-arm in the OR with the above procedure. Total fluoroscopy time was 7.6 seconds. Total skin dose was 2.37 mGy. Comparison: None available at the time of this dictation. FINDINGS/IMPRESSION: Multiple intraoperative images of retrograde ureteroscopy and stent placement we re obtained. Please correlate with intraoperative fluoroscopy and operative report. ACT 112: Negative or not required by law. Electronically signed by: Tru Ashford M.D. 08/20/2021 2:26 PM
--- NOTE | 2021-08-20 15:11 | Discharge Summary ---
Date of Service August 20, 2021 Admission HPI Per Admitting Provider Hernan Tanner is a 80-year-old male with a past medical history of CAD with PCI and stent, type 2 diabetes, Schatzki's ring, hypertension, hyperlipidemia, CKD 3, cataracts, BCC of the eye, and arthritis who was seen in [facility] and was found to have 2X renal stones and was sent outpatient follow-up with Dr. Lee. He was scheduled for lithotripsy in September pending cardiac clearance, however has presented for intractable pain 08/19. Case was discussed with Dr. Lee by ER, recommended for admission with cardiology consult for optimization and nephrolithiasis treatment. [facility] 2x renal stones Sees account installer in [place]. Hx of valvular problems and murmur, hx of severe . CT Scan LEFT. Dr. Hurtado saw outpt Friday. Having pain, was scheduled for lithotripsy. Was pending cardiac clearance and scheduled for Sep 10 Pain all day until 10pm, acutely worsened and intractable Per Dr. Hurtado: Admit, accelerate cardiac workup, tx in house Ginny tto ed at 830pm felt OK. Woke up with severe sharp pain in her L back. Took two tylenol with no improvement. No pain with urination No hematuria Pain is in his L back. Mild LUQ pain. 5/10 pain now, 10/10 pain now Normally sees Cardiology Dr. Mcgovern with [facility] in [place], [place]. Hx of Aortic Stenosis, scheduled for f/u on Aug 27 for evaluation. +Sob with exertion, progressive for several months No chest pain, no chest pressure right now +chest pain and cold sweat last night with pain episode PCI & carotid stent. PCI in Oct 2003. R carotid stend placed 2013. No medications yet this morning. Heart cath in 2016, RCA 100% occluded with collaterals. No IMDUR or Coreg since 2016. Medical History: Reviewed Medications: Reviewed Surgical History: Reviewed Allergies: Reviewed Social History: no tobacco, etoh, MM use. Code Status: Full Code. Admission Exam Per Admitting Provider General: A&Ox3. NAD. Cooperative. HEENT: Atraumatic, normocephalic. Vision/hearing grossly intact Pulm: CTAB A&P. -wheezes, -rales, -rhonchi. Symmetrical chest rise. No increase work of breathing. No respiratory distress. Cardiac: 6/6 sytolic murmur. Radial pulses intact and symmetrical. Abdominal: Left CVA tenderness is present, left flank tenderness is present. No rebound. Bowel sounds present. Ext: Distal extremity strength including modeling instructor strength, ankle ron siflexion/plantarflexion 5/5. Sensation to soft touch intact in hands and feet. Principal Diagnosis L obstructing ureteral calculi Discharge Exam General: WN/WD, obese male, sitting in bed, NAD ENT: ASHLEY, anicteric sclerea, mmm, trachea midline without deviation Lungs: CTAB, no w/c/r, on room air CV: RRR, 5/6 systolic murmur with radiation to carotids, S1. No gallop/rub or edema GI: +BS throughout, soft, non-tender : no coronel Psych: AOx3, pleasant and cooperative, "wanting to go home" Neuro: no focal deficits, speech clear, answering questions appropriately Discharge Data Allergies Allergy/AdvReac Type Severity Reaction Status Date / Time Penicillins Allergy Unverified 08/17/21 10:28 Consultations 08/19/21 13:19 ED Decision to Admit Stat 08/19/21 18:45 Consult Cardiology Routine Consult Urology Routine Procedures Performed Operation Date: 08/20/21 13:20 Actual Procedures p Cystoscopy, Left Stent insertion, Retrograde Pyelogram(Left) - Connor Lee DO Ordered Studies 08/20/21 [place] retrograde includes kub Routine Hospital Course (1) Ureteral calculi: Hernan is a 80-year-old male with a history of severe aortic stenosis, coronary artery disease with past PCI and 100% occluded RCA, hypertension, type 2 diabetes, and CKD 3 who presents with intractable pain due to nephrolithiasis, ABBY. COVID 19 testing negative. CXR without pneumonia CAD with symptomatic aortic stenosis and cardiology was consulted -- ECHO obtained and stable from cardiac standpoint for anesthesia Admitted for obstructing nephrolithiasis with intractable pain. CT 08/14/2021: 2 obstructing calculi in the proximal left ureter resulting in moderate/proximal hydronephrosis and perinephric stranding. Nonobstructing calculus in the lower right kidney, uncomplicated cholelithiasis, and extensive sigmoid diverticulosis without complication are noted. Large right inguinal hernia extending into the region of the upper scrotum incompletely assessed. Rocephin IV, pain control, antiemetics provided Urology consulted s/p Cystoscopy with left aspiration, retrograde pyelogram, and stent placement with Dr. Lee. urine cx from admission without growth Per discussion, obstruction during OR and rec abx x 7 days total Given dose Cipro, renal dosed, prior to d/c and to have additional 5 days Cx from OR pending at time of d/c but Repeat Cr 2.7 (baseline around 2.3-2.6) and instructed to hold VIRY for tomorrow, monitor BPs, and resume on 08/22. Repeat BMP in 2-3 days outpatient provided to ensure stable To have follow up with Urology in 2-3 weeks for definitive stone treatment Of note, patient and at bedside wanting to go home today and not remain inpatient additional day for continued monitoring. He had been in ER >24hours and taken to OR from ER and was awaiting bed in PACU and feeling well/eating/drinking and felt stable for d/c by both urology and cardiology. (2) Aortic stenosis: Severe aortic stenosis Symptomatic, severe by report however ECHO and cardiology consult ok with anesthesia. Patient had been chopping wood week prior so does have functional status TTE with normal LV size/function. EF 55-60%. Moderate concentric LVH. Grade I diastolic dysfunction. Significantly reduced but readily visible aortic leaflet excusion --> consistent with severe but NON-CRITICAL aortic stenosis. Trace AR (3) Carpal tunnel syndrome, left: on recent EMG testing f/u PCP no issues reported (4) Chronic kidney disease, stage III (moderate): CKD 3, with acute ABBY Baseline creatinine 22.3 Creatinine 2.58 on admission, bumped prior to OR and remained stable. Hold VIRY x1day and repeat BMP outpatient (5) Hypertension: Hypertension Continued amlodipine 10 mg daily Benzapril 40 mg held for ABBY as above x1 day, monitor BP at home, then resume (6) CAD (coronary artery disease): Coronary artery disease Continued rosuvastatin 40 mg daily, metoprolol 25 mg p.o. daily, Zetia 10 mg daily, aspirin/Plavix Total Time Total Time Spent Total Time Spent (In Minutes): 45 Discharge Plan Discharge Items Patient Disposition: Home - Self-Care Reason For Visit: NEPHROLITHIASIS, ABBY, Discharge Diagnosis: Kidney Stone, Acute Kidney Injury Goals: You have been hospitalized for an urgent problem which required surgery. During your stay at [facility], we have made an effort to correct the problem that brought you to the hospital while keeping you as comfortable as possible. Surgery and medications were used to bring your condition under control and your discharge instructions will include directions for any medications you should take after leaving the hospital. Please make sure to follow the advice of your surgeon regarding follow up with the surgeon and with your primary care provider. Activity: Resume your previous activity Non-emergency contact: Primary Care Provider and Urologist Call non-emergency contact if: you have any medication questions, your symptoms worsen, your pain is not controlled and you have a fever Follow-up/Referrals: Connor Lee DO [Physician] - (2 weeks) Celina Liz MD [Primary Care Provider] - Diet: Heart Healthy Addtl Attending Provider Instructions: You have been hospitalized for a kidney stone which caused obstruction and worsening kidney function. Consultation was had with urology and you had a stent placed and will need follow up in 2-3 weeks for definitive treatment. You will be continued on antibiotics for a week in the form of Ciprofloxacin 500mg by mouth ONCE DAILY for an additional 5 days. You got a dose today so you will only need to continue this prescription for another 5 days instead of 6 for a total of 7 days of therapy. Your urine culture from admission is negative, but Urology felt your kidney was quite obstructed and recommended a course of antibiotics. They took a culture during the OR as well, which will be pending at time of discharge. You have been provided lab slips to have repeat kidney function testing in the next 2-3 days to ensure this is returning to normal. You should continue to monitor your blood pressures at home and continue to hold your benazepril for tomorrow 08/21 and can resume this on 08/22 unless blood pressure is elevated. If elevated, please call your primary care for further instructions as this medication can cause damage to your kidneys and given recent obstruction this is felt better to hold for a day. Please follow up with your account installer as previously scheduled for your aortic valve and follow up with your PCP in the next week to monitor your progress. Please return for any worsening pain, chest pain, fever, shortness of breath, or for any other symptoms that are concerning for you. It has been a pleasure being a part of the medical team providing for you while you have been in the hospital. Take care! Pending Studies at Discharge: Yes Studies:: Urine cx, kidney -- from OR Stand-Alone Forms: Anesthesia/Sedation, Adult, My [facility] Medications and DC Order Prescriptions: New ciprofloxacin HCl 500 mg tablet 500 mg PO DAILY Qty: 6 RF: 0 oxycodone 5 mg tablet 5 mg PO Q8H PRN (Reason: pain) Qty: 6 RF: 0 Continued clopidogrel 75 mg tablet 75 mg PO DAILY RF: 0 pantoprazole 20 mg tablet,delayed release (DR/EC) 20 mg PO DAILY RF: 0 amlodipine-benazepril 10-40 mg capsule 1 cap PO DAILY RF: 0 rosuvastatin 40 mg tablet 40 mg PO DAILY RF: 0 cyanocobalamin (vitamin B-12) 1,000 mcg tablet 1,000 mcg PO DAILY RF: 0 ferrous sulfate 325 mg (65 mg iron) tablet See Rx Instructions PO .COMPLEX RF: 0 nitroglycerin [Nitrostat] 0.4 mg tablet, sublingual 0.4 mg SL Q5M PRN (Reason: chest pain) RF: 0 aspirin 81 mg tablet,delayed release (DR/EC) 81 mg PO DAILY RF: 0 multivitamin [Daily Multi-Vitamin] tablet 1 tab PO DAILY RF: 0 ergocalciferol (vitamin D2) 2,000 unit tablet See Rx Instructions PO .COMPLEX RF: 0 turmeric root extract 500 mg capsule See Rx Instructions PO .COMPLEX RF: 0 ezetimibe [Zetia] 10 mg tablet 10 mg PO DAILY RF: 0 acetaminophen [Tylenol Extra Strength] 500 mg tablet 500 mg PO BID PRN (Reason: Pain) RF: 0 ascorbate calcium (vitamin C) 500 mg tablet 500 mg PO DAILY RF: 0 benazepril [Lotensin] 20 mg Tablet 20 mg PO DAILY RF: 0 metoprolol succinate [Toprol XL] 25 mg Tablet Extended Release 24 Hr 25 mg PO DAILY RF: 0 PreserVision AREDS-2 [id number] [id number]-mg Capsule 1 cap PO DAILY RF: 0 tamsulosin 0.4 mg capsule 0.4 mg PO DAILY RF: 0 Discharge Orders: Discharge Order (Routine); Ordered 08/20/21 Ordered By: Sveta Prieto/Other Patient Handouts: DVT Post Op Prevention, High Blood Sugar (Hyperglycemia), Hypoglycemia (Low Blood Sugar), Managing Type 2 Diabetes Admission Data Admit Date/Time: 08/19/21 14:04 Attending Provider: Zahira Cuevas Admit Provider: Thom Kimble Primary Care Provider: Celina Liz Other Providers: Thom Kimble ; Sancho Mendiola ; Connor Lee Other Interventions: Discharge Summary Assessment (RN) Last Done: 08/20/21 17:35 Supervising Physician Co-Signing Physician Notes PA Supervision Note: I personally saw and examined the patient. I verified all abreu points and agree with BENJAMIN Dominguez with the following exceptions and/or additions: S-patient seen in the PACU after recovery from his ureteral stent placement. He is doing very well. Denies chest pains or shortness of breath, no abdominal pain or nausea, no lightheadedness. No further back or flank pain. He is feeling well and wants to go home. I discussed his case with the account installer prior to the procedure. O- Vitals reviewed Gen: AAOx3, NAD HEENT: Anicteric sclerae, EOMI CV: RRR 3/6 SANDRA at RUSB nl S1S2 Pulm: CTAB no wcr Abd: +BS soft NT ND no masses or hernias Ext: No edema, 2+ DP pulses Skin: No rashes, warm/dry Neuro: Full strength throughout [id number]-old male with a history of severe aortic stenosis, CKD stage III-IV, DM 2, here with left-sided ureterolithiasis that is symptomatic and with mild acute kidney injury. Now status post left ureteral stent placement. Stable for discharge to home on renally dosed Cipro, encouraged plenty of p.o. fluids with water. Follow-up with urology as an outpatient for definitive stone treatment. Follow-up with BMP in 2 to 3 days with PCP to reassess renal function. Coding Level of Care Code D/C DAY MANAGEMENT >30 MINS Diagnoses Ureteral calculi N20.1 Aortic stenosis I35.0 Carpal tunnel syndrome, left G56.02 Chronic kidney disease, stage III (moderate) N18.3 Hypertension I10 CAD (coronary artery disease) I25.10
[2021-08-20] MEDS ORDERED: CIPROFLOXACIN 500 MG TAB PO STA ×2 (15:49→15:58)
--- NOTE | 2021-08-20 15:57 | Anesthesiology Progress Note ---
Date of Service August 20, 2021 Anesthesia Post Procedure Vital Signs Vital Signs: Temp Pulse Pulse Resp BP Pulse Ox 08/20/21 15:15 37.0 C 81 21 136/74 96 08/20/21 15:00 37.0 C 76 14 132/73 96 08/20/21 14:45 37.0 C 75 16 126/65 95 08/20/21 14:35 79 20 125/71 99 08/20/21 14:25 81 16 127/74 99 08/20/21 14:19 36.6 C 80 18 115/63 98 08/20/21 12:40 37.2 C 82 20 142/71 H 97 08/20/21 11:00 81 17 132/56 L 96 08/20/21 07:50 77 20 144/70 H 96 08/20/21 03:48 37.1 C 79 20 139/74 94 08/19/21 23:00 82 24 145/62 H 97 08/19/21 22:31 37.1 C 76 18 159/74 H 95 08/19/21 17:16 69 18 169/83 H 96 Transfer of Care Handoff Completed per policy Notes Mental Status: alert / awake / arousable and participated in evaluation Patient Amnestic to Procedure: Yes Nausea / Vomiting: adequately controlled Pain: adequately controlled Airway Patency, RR, SpO2: stable & adequate BP & HR: stable & adequate Hydration State: stable & adequate Anesthetic Complications: no major complications apparent and Pt Satisfied with anesthetic care
[2021-08-20 17:18] LABS: BUN Creatinine Ratio 13.7 (10-20); Calcium 9.8 mg/dl (8.5-10.1); Creatinine Clr Calc Pharmacy 24.1 ml/min; Est GFR (Non-African American) 21.6 ml/min
[2021-08-20] MEDS ORDERED: oxyCODONE IR HOME PACK PO ONE (17:30)
== END 2021-08-20 17:35 | disposition home or self-care (01) | DRG 661 ==
LOC: ED 10:13 → EDINP 14:04 → SUATTDRO 14:04 → INTOOBSV 14:04 → EDINP 22:14